=== PATIENT | female | born 1945 | race Caucasian/White ===

== ENCOUNTER → 2021-03-07 | Outpatient (CLI) | payer OTHER, MEDICARE ==
--- NOTE | 2021-03-07 11:18 | Diagnostic Imaging Report ---
Indication: Left knee pain. TIME OF EXAM: 10:17 AM 3 views of the left knee were obtained. Alignment is normal. There are degenerative changes of the medial and patellofemoral compartments where there is joint space narrowing and marginal spurring. The lateral compartments fairly well maintained. No fracture, dislocation or effusion is seen. There are some benign appearing calcifications in the soft tissues of the anterior and medial lower extremity. IMPRESSION: Degenerative changes. No acute bony abnormalities detected. Dictated by: Dictated on workstation # [id number]
== END ==
LOC: RAD FS 10:08
PROVIDERS: ATTEND Nurse Practitioner
DX: M17.12 Unilateral primary osteoarthritis, left knee (principal)
CPT/HCPCS: 73562